=== PATIENT | female | born 1950 | race Caucasian/White ===

== ENCOUNTER 2019-01-27 06:21 | Day surgery (SDC) | payer BC, OTHER ==
[2019-01-16 10:16] VITALS: BMI 29.7
[2019-01-27] MEDS ORDERED: PHENAZOPYRIDINE HCL 100 MG TABLET (FP) PO ONE (07:00)
[2019-01-27] MEDS ORDERED: ROPIVACAINE HCL 0.5% 30ML VIAL ONE (07:13)
[2019-01-27] MEDS ORDERED: MIDAZOLAM HCL 2 MG/2 ML SINGLE DOSE VIAL ONE ×3 (07:18→07:32)
[2019-01-27] MEDS ORDERED: VASOPRESSIN 20 UNITS/ML VIAL IV ONE (07:20)
[2019-01-27] MEDS ORDERED: BUPIVACAINE HCL/PF 0.5% (5 MG/ML) 30 ML VIAL IJ ONE (07:20)
--- NOTE | 2019-01-27 07:24 | HP ---
History & Physical Update - History History: No Change - Physical Physical: No Change - Assessment Assessment: No Change - Plan Plan: No Change (No change in HP)
[2019-01-27] MEDS ORDERED: ROCURONIUM BROMIDE 50 MG/5 ML SYRINGE ONE ×2 (07:32)
[2019-01-27] MEDS ORDERED: PROPOFOL 20 ML ONE ×3 (07:32→11:45)
[2019-01-27] MEDS ORDERED: fentaNYL CITRATE 250 MCG/5 ML VIAL ONE ×3 (07:32→10:11)
[2019-01-27] MEDS ORDERED: ceFAZolin SODIUM 1 GM VIAL IVPB ONE (08:15)
[2019-01-27] MEDS ORDERED: EPHEDRINE SULFATE/0.9% NACL/PF 50 MG/10 ML SYRINGE NR ONE (08:33)
[2019-01-27] MEDS ORDERED: DOCUSATE SODIUM 100 MG CAPSULE (FP) PO PRN (10:39)
[2019-01-27] MEDS ORDERED: oxyCODONE HCL 5 MG TABLET PO PRN ×2 (10:39)
[2019-01-27] MEDS ORDERED: ONDANSETRON 4 MG/2 ML VIAL IVPUSH PRN (10:39)
[2019-01-27] MEDS ORDERED: ACETAMINOPHEN 325 MG TABLET (FP) PO PRN (10:39)
[2019-01-27] MEDS ORDERED: SIMETHICONE 80 MG TAB.CHEW (FP) PO PRN (10:39)
[2019-01-27] MEDS ORDERED: IBUPROFEN 800 MG/8 ML IJ IVPB PRN (10:39)
[2019-01-27] MEDS ORDERED: SODIUM CHLORIDE 1,000 ML IV SCH (10:45)
[2019-01-27] MEDS ORDERED: GLYCOPYRROLATE 0.2 MG/1 ML VIAL ONE (11:02)
[2019-01-27] MEDS ORDERED: NEOSTIGMINE METHYLSULFATE 0.5 MG/ML - 10 ML MDV ONE (11:02)
[2019-01-27] MEDS ORDERED: BUPIVACAINE HCL/PF 0.5% (5MG/ML) 10 ML VIAL NR ONE (11:11)
[2019-01-27] MEDS ORDERED: BISACODYL 5 MG TABLET.DR (FP) PO ONE (12:00)
[2019-01-27] MEDS ORDERED: INSULIN (NOVOLOG) ASPART 100 UNITS/ML 10ML VIAL ONE (14:02)
[2019-01-27] MEDS ORDERED: INSULIN (NOVOLOG) ASPART 100 UNITS/ML 10ML VIAL SQ ONE (14:07)
--- NOTE | 2019-01-27 15:08 | OP ---
Operative Note - Note: Operative Date: 01/27/19 Pre-Operative Diagnosis: Cystocele, uterine prolapse Operation: Robotic laproscopic total hysterectomy, bilateral salpingectomy, and bilateral oopherectomy. Post-Operative Diagnosis: Same as Pre-op Surgeon: Morena Woo Nutritionist: Jaren Delatorre Anesthesiologist/AGRICULTURE ENGINEER: Klarissa Tay Anesthesia: General Estimated Blood Loss (mls): 20 Operative Report Dictated: Yes
--- NOTE | 2019-01-27 15:09 | SURG ---
Surgery Condominium Property Manager Note Condominium Property Manager: Jaren Delatorre PA-C Date of Service: 01/27/19 Diagnosis: Cystocele, uterine prolapse Procedure: Robotic laproscopic total hysterectomy, bilateral salpingectomy, and bilateral oopherectomy. I was present for the entirety of the operative procedure. For further detail, please refer to operative report. Visit type - Case Type Case Type: Scheduled - Emergency Emergency Visit: No - New patient This patient is new to me today: Yes Date on this admission: 01/27/19 - Critical Care Critical Care patient: No
[2019-01-27] MEDS: INSULIN SLIDING SCALE (NOVOLOG) 1 VIAL SQ SCH ×2 (17:10→22:21)
[2019-01-27] MEDS: CEFAZOLIN 1 GM/D5W 1 GM/50 ML BAG IVPB SCH (17:12)
[2019-01-27 19:13] LABS: HEMATOCRIT 31.9 % (32.4-45.2); HEMOGLOBIN 10.5 GM/dL (10.7-15.3); MCH 28.6 pg (25.7-33.7); MCHC 32.8 g/dl (32.0-36.0); MEAN PLT VOLUME 9.6 fl (7.5-11.1); PLATELET COUNT 198 K/MM3 (134-434); RBC 3.66 M/mm3 (3.60-5.2); RDW 13.8 % (11.6-15.6); WHITE BLOOD COUNT 11.6 K/mm3 (4.0-10.0)
[2019-01-27 19:36] LABS: BLOOD UREA NITROGEN 19.7 mg/dL (7-18); CALCIUM 9.2 mg/dL (8.5-10.1)
[2019-01-28] MEDS: CEFAZOLIN 1 GM/D5W 1 GM/50 ML BAG IVPB SCH ×2 (01:13→07:59)
[2019-01-28] MEDS: INSULIN SLIDING SCALE (NOVOLOG) 1 VIAL SQ SCH ×2 (08:05→11:23)
--- NOTE | 2019-01-28 08:52 | PN ---
Progress Note (short form) - Note Progress Note: 68yo F s/p robotic hysterectomy and bladder sling POD 1, pt seen and examined at bedside. Pt states that she feels good, pain is well controlled. Dallas was just removed. Pt denies n/v, fever, chills. Pt tolerating PO and ambulating. Last Vital Signs Temp Pulse Resp BP Pulse Ox 98.1 F 93 H 20 147/65 97 01/28/19 06:56 01/28/19 06:56 01/28/19 06:56 01/28/19 06:56 01/28/19 06:57 CBC, BMP 01/27/19 18:35 01/27/19 18:35 PE: Gen: A&O X3 Resp: breathing comfortably Abd; soft, nondistended, nontender, incisions are clean, no erythema or discharge. Ext; no edema Problem List - Problems (1) S/P hysterectomy with oophorectomy Assessment/Plan: Plan -pt appears to be doing well, will plan to discharge later today if tolerating diet and urinating well. -pt should follow up with Dr. Woo next week for follow up and call Dr. Ng's office for follow up appt. -please contact surgery service if any issues. Pt discussed with Dr. Woo who agrees with plan Code(s): Z90.710 - ACQUIRED ABSENCE OF BOTH CERVIX AND UTERUS; Z90.721 - ACQUIRED ABSENCE OF OVARIES, UNILATERAL
--- NOTE | 2019-01-28 09:08 | PN ---
Post Progress Note - Subjective Subjective: Patient is status post Post Day: 1 Vital Signs: Vital Signs Temperature 98.1 F 01/28/19 06:56 Pulse Rate 93 H 01/28/19 06:56 Respiratory Rate 20 01/28/19 06:56 Blood Pressure 147/65 01/28/19 06:56 O2 Sat by Pulse Oximetry (%) 97 01/28/19 06:57 - Labs Labs: CBC WBC 11.6 K/mm3 (4.0-10.0) H 01/27/19 18:35 RBC 3.66 M/mm3 (3.60-5.2) 01/27/19 18:35 Hgb 10.5 GM/dL (10.7-15.3) L 01/27/19 18:35 Hct 31.9 % (32.4-45.2) L 01/27/19 18:35 MCV 87.0 fl (80-96) 01/27/19 18:35 MCH 28.6 pg (25.7-33.7) 01/27/19 18:35 MCHC 32.8 g/dl (32.0-36.0) 01/27/19 18:35 RDW 13.8 % (11.6-15.6) 01/27/19 18:35 Plt Count 198 K/MM3 (134-434) 01/27/19 18:35 MPV 9.6 fl (7.5-11.1) 01/27/19 18:35
[2019-01-28 09:12] LABS: HEMATOCRIT 31.7 % (32.4-45.2); HEMOGLOBIN 10.7 GM/dL (10.7-15.3); MCH 29.2 pg (25.7-33.7); MCHC 33.7 g/dl (32.0-36.0); MEAN CELL VOLUME 86.6 fl (80-96); MEAN PLT VOLUME 9.2 fl (7.5-11.1); PLATELET COUNT 220 K/MM3 (134-434); RBC 3.66 M/mm3 (3.60-5.2); RDW 13.8 % (11.6-15.6); WHITE BLOOD COUNT 14.3 K/mm3 (4.0-10.0)
[2019-01-28] MEDS ORDERED: VITAMIN B COMPLEX W/C COMBO TABLET (FP) PO SCH (10:00)
[2019-01-28] MEDS ORDERED: ENOXAPARIN NA (PORCINE) 40 MG/0.4 ML DISP.SYRIN SQ SCH (10:00)
[2019-01-28] MEDS ORDERED: amLODIPine BESYLATE 10 MG TABLET (FP) PO SCH (10:00)
[2019-01-28] MEDS ORDERED: LISINOPRIL 10 MG TABLET (FP) PO SCH (10:00)
[2019-01-28 10:02] LABS: CALCIUM 9.4 mg/dL (8.5-10.1); CREATININE 0.8 mg/dL (0.55-1.3); POTASSIUM 4.3 mmol/L (3.5-5.1)
--- NOTE | 2019-01-28 14:22 | PATH ---
Surgical Pathology Report Patient Name: CINDY BYRNES [facility]. Rec. #: [id number] /Age/Gender: 1950 (Age: 68) / F Account: [id number] Location: [facility] OBS/LUBRICATOR GRANULATOR Taken: 01/27/2019 Received: 01/27/2019 Reported: 01/28/2019 Physicians: Raleigh Kim M.D. Specimen(s) Received A: ANTERIOR VAGINAL MUCOSA B: UTERUS AND CERVIX C: LEFT FALLOPIAN TUBE D: RIGHT FALLOPIAN TUBE E: LEFT OVARY F: RIGHT OVARY Clinical History Uterine prolapse, cystocele Final Diagnosis A. ANTERIOR VAGINAL MUCOSA, EXCISION: VAGINAL SQUAMOUS MUCOSA WITHOUT SIGNIFICANT PATHOLOGIC FINDINGS. B. UTERUS, CERVIX, ROBOTIC LAPAROSCOPIC TOTAL HYSTERECTOMY: 48 G UTERUS. ENDOMETRIAL POLYP.ATROPHIC ENDOMETRIUM. UNREMARKABLE MYOMETRIUM. CERVIX WITH FOCAL ACUTE AND CHRONIC INFLAMMATION, ULCERATION, REACTIVE CHANGES, AND HYPERKERATOSIS. C. FALLOPIAN TUBE, LEFT, SALPINGECTOMY: UNREMARKABLE FALLOPIAN TUBE (INCLUDING FIMBRIATED END AND FULL LUMINAL PORTION). D. FALLOPIAN TUBE, RIGHT, SALPINGECTOMY: FALLOPIAN TUBE WITH PARATUBAL CYST AND FOCAL ENDOSALPINGOSIS (INCLUDING FIMBRIATED END AND FULL LUMINAL PORTION). E. OVARY, LEFT, OOPHORECTOMY: OVARY WITHOUT SIGNIFICANT PATHOLOGIC FINDINGS. F. OVARY, RIGHT, OOPHORECTOMY: OVARY WITHOUT SIGNIFICANT PATHOLOGIC FINDINGS. Electronically Signed Sandrine Lancaster M.D. Gross Description A. Received in formalin labeled "anterior vaginal mucosa," is a 5.0 x 1.9 x 0.4 cm aggregate of 2 mercado, irregular, unoriented portions of mucosal tissue. Program Trainer sections are submitted in one cassette. B. Received in formalin labeled "cervix and uterus," is a 48 g uterus with attached cervix and no attached adnexa. The specimen measures 7.5 cm from superior to inferior, 4.5 cm from left to right and 2.5 cm from anterior to posterior. The serosa is pink-mercado and smooth. The cervix measures 3 cm in length and 1.8 cm in diameter. The ectocervix is mercado, smooth and glistening. The endocervix is unremarkable. The endometrial cavity measures 3.3 cm in length and 2.4 cm from cornu to cornu. The endometrium displays a 0.3 cm in greatest dimension possible polypoid lesion at the posterior aspect. The remaining endometrium is mercado-red and averages 0.1 cm in thickness. The myometrium is mercado-pink and averages 1.2 cm in thickness. No intramural nodules are identified. Program Trainer sections are submitted in 6 cassettes as follows: 1-anterior cervix; 2-posterior cervix; 4-8-cyytnsrm endomyometrium; 5-posterior endomyometrium with polyp; 6-additional posterior endomyometrium. C. Received in formalin labeled "left fallopian tube," is a 5 cm in length fimbriated fallopian tube. The outer surface is mercado-pink and smooth. Sectioning reveals an unremarkable lumen. Program Trainer sections are submitted in 2 cassettes as follows: 1-fimbria; 2-cross sections of fallopian tube. D. Received in formalin labeled "right fallopian tube," is a 2.5 cm in length fimbriated fallopian tube. The outer surface is mercado-pink and smooth. Sectioning reveals an unremarkable lumen. Program Trainer sections are submitted in 2 cassettes as follows: 1-fimbria; 2-cross sections of fallopian tube. E. Received in formalin labeled "left ovary," is a 2.7 x 1.6 x 1.0 cm ovary. The outer surface is mercado-yellow and smooth. Sectioning reveals unremarkable ovarian parenchyma. Program Trainer sections are submitted in 2 cassettes. F. Received in formalin labeled "right ovary," is a 2.7 x 1.8 x 1.3 cm ovary. The outer surface is mercado-yellow and smooth. Sectioning reveals unremarkable ovarian parenchyma. Program Trainer sections are submitted in 2 cassettes. 01/27/2019 saudi01/27/2019
[2019-01-28 14:51] VITALS: PULSE 107
--- NOTE | 2019-01-28 14:57 | PN ---
Progress Note (short form) - Note Progress Note: POD #1 s/p robot assisted laparoscopic BLADIMIR with cystocele repair under GEtA and bilateral TAP blocks. Patient doing well, denies nausea/vomiting, uncontrolled pain. Patient congested and coughing today, CXR clear. Encouraged incentive spirometry use and ambulation.
[2019-01-28 15:18] VITALS: BP 152/79; TEMP 98.8
--- NOTE | 2019-01-30 09:11 | OP ---
DATE OF OPERATION: 01/27/2019 PREOPERATIVE DIAGNOSES: Uterine prolapse, cystocele. OPERATION: Robotic laparoscopic total hysterectomy and bilateral salpingectomy and also bilateral oophorectomy. POSTOPERATIVE DIAGNOSES: Uterine prolapse, cystocele. SURGEON: Morena Woo MD FARM SERVICE ADVISER: Jaren Delatorre PA-C ANESTHESIOLOGIST: JONAS Sinha ANESTHESIA: General. ESTIMATED BLOOD LOSS: 20 mL. PROCEDURE: Patient was taken to the operating room, placed in dorsal lithotomy position, prepped and draped in the usual sterile fashion. A second timeout was done after Dr. Kim had performed the cystocele repair as well as a sling. Speculum was placed in the vagina. Anterior lip of the cervix grasped with a single-tooth tenaculum and cervix was then dilated to accommodate the uterine manipulator. Dallas catheter was then inserted into the bladder. Attention was then drawn to the umbilicus where an 8-mm umbilical incision was made. Veress needle was inserted into the cavity. Approximately 3-4 L of CO2 was insufflated in the cavity. Veress needle was removed, and an 8-mm trocar was then introduced. Laparoscope and camera attached. Visualization revealed a prolapsed uterus, normal tubes and ovaries. Two trocars were placed on the left. Scalpel was then used to make 8-mm incisions about 10 cm apart in each incision, one in the upper abdomen and one 10 cm apart from the umbilicus. Trocars were inserted under direct visualization. Two robotic trocars were also placed on the right side 10 cm apart. Scalpel was then used to make an 8-mm incision, and trocars were inserted under direct visualization. Placement was confirmed. The da Anupama robot was then side docked to the patient's bedside. Trocars were then attached. Instruments were then placed. LigaSure was placed in arm 1, camera in arm 2, EndoShears in arm 3, and tenaculum in arm 4. After placement had been confirmed and all trocars had been burped up and placement of instruments was done, attention was then drawn to the console where control of the console was then done. The tenaculum was then used to grasp the uterus over to the right side, and a LigaSure was then used to coagulate and cut the utero-ovarian ligament. Uterine artery was then identified, clamped, and cut. Vesicouterine reflection was then entered, and bladder was bluntly dissected out the operative field. Dissection was done to ensure that the bladder was totally out of the operative field. Same procedure was repeated on the right side. Utero-ovarian ligaments identified. Uterine arteries were identified and clamped and cut, and cardinal ligaments identified, clamped, and cut, all down to the level of the cervix. Cervix was then entered using EndoShears, and the cervix was then cut away from the vagina. Uterus and cervix were then removed from the vagina. The tubes and ovaries were bilaterally grasped. Infundibulopelvic ligaments identified and clamped and cut using LigaSure, and bilateral tubes and ovaries were removed. The 2-0 V-Loc suture was introduced into the abdomen, and the da Anupama robot was then used to close the cuff in a continuous fashion. Hemostasis was achieved. Ureters identified and found to have bilateral peristalsis. All instruments were then removed. CO2 was removed from the abdomen, and all incisions were closed using 3-0 Vicryl in subcuticular fashion. Wound was washed and dressed. The patient had tolerated the procedure well, was taken to recovery room in stable condition. Wesley [id number]
== END 2019-01-28 15:45 | disposition home or self-care (01) ==
LOC: JASUSAT 06:21 → J3W 14:53 → JASUSAT 01-28 15:45
PROVIDERS: ATTEND Obstetrics & Gynecology
PROC: 8E0W4CZ Robotic Assisted Procedure of Trunk Region, Percutaneous Endoscopic Approach (ICD-10-PCS; 2019-01-27)
PROC: 0UT94ZZ Resection of Uterus, Percutaneous Endoscopic Approach (ICD-10-PCS; principal; 2019-01-27 08:00)
PROC: 0UT24ZZ Resection of Bilateral Ovaries, Percutaneous Endoscopic Approach (ICD-10-PCS; 2019-01-27 08:00)
PROC: 0UT74ZZ Resection of Bilateral Fallopian Tubes, Percutaneous Endoscopic Approach (ICD-10-PCS; 2019-01-27 08:00)
DX: N81.4 Uterovaginal prolapse, unspecified (principal); N81.10 Cystocele, unspecified
CPT/HCPCS: 58571; S2900; 36415; 71046-TC-FY; 80048; 82962; 85027; 86850; 86900; 86901; 88302-TC; 88305-TC; 94010; 94760; J7030

== ENCOUNTER 2019-01-30 10:04 | Emergency (ER) | payer BC, OTHER ==
[2019-01-30] MEDS ORDERED: ASPIRIN 325 MG TABLET PO ONE (10:19)
[2019-01-30 10:21] VITALS: BP 180/82; BMI 30.7
[2019-01-30] MEDS ORDERED: CLOPIDOGREL BISULFATE 300 MG TABLET PO ONE (10:21)
[2019-01-30] MEDS ORDERED: HEPARIN NA (PORCINE) 5,000 UNITS/ML 1ML VIAL IVPUSH PRN (10:22)
[2019-01-30] MEDS ORDERED: ASPIRIN 325 MG ENTERIC COATED TABLET (FP) ONE (10:25)
[2019-01-30] MEDS ORDERED: HEPARIN NA (PORCINE) 5,000 UNITS/ML 1ML VIAL ONE (10:25)
[2019-01-30] MEDS ORDERED: CLOPIDOGREL BISULFATE 300 MG TABLET ONE (10:25)
--- NOTE | 2019-01-30 10:33 | PDOC ---
History of Present Illness - General Chief Complaint: Chest Pain Stated Complaint: CHEST TIGHTNESS Time Seen by Provider: 01/30/19 10:20 History Source: Patient Exam Limitations: No Limitations - History of Present Illness Initial Comments: 01/30/19 10:55 68 yo female, former smoker, pmh HTN, HLD, DM, new heart murmur and recent hysterectomy (01/27/2019) presents to the ED with chest tightness. Pt states the tightness began last night while resting, pt had associated SOB but denies radiation of pain. Pt has no hx of [place], blood clots, cardiac arrhythmia. Denies back pain, calf tenderness, blood clotting disorder, F/C/N/V, lightheadedness, abdominal pain Past History - Past Medical History Allergies/Adverse Reactions: Allergies Allergy/AdvReac Type Severity Reaction Status Date / Time Sulfa (Sulfonamide Allergy Severe Verified 01/27/19 07:16 Antibiotics) Penicillins Allergy Intermediate Verified 01/27/19 07:16 Home Medications: Ambulatory Orders Amlodipine Besylate 10 mg PO DAILY 01/16/19 Aspirin [Pike Aspirin EC] 81 mg PO DAILY 01/16/19 Cinnamon Bark [Cinnamon] 500 mg PO DAILY 01/16/19 Insulin Degludec/Liraglutide [Xultophy 100 Unit-3.6MG/ml Pen] 3 ml SQ ACBK 01/16 Lisinopril 10 mg PO DAILY 01/16/19 Metformin HCl [Glucophage] 500 mg PO DAILY 01/16/19 Vitamin B Comp W-C [Total B with C -] 1 tab PO DAILY 01/16/19 Docusate Sodium [Colace] 100 mg PO BID #30 capsule 01/28/19 Nitrofurantoin Monohyd/M-Cryst [Macrobid -] 100 mg PO BID #14 capsule 01/28/19 Oxycodone HCl/Acetaminophen [Percocet 5-325 mg Tablet] 1 tab PO Q6H #20 tablet MDD 4 01/28/19 Anemia: No Asthma: No Cancer: No Cardiac Disorders: No CVA: No COPD: No CHF: No Dementia: No Diabetes: Yes GI Disorders: No Disorders: No HTN: Yes Hypercholesterolemia: Yes Liver Disease: No Seizures: No Thyroid Disease: No - Surgical History Abdominal Surgery: No Appendectomy: No Cardiac Surgery: No Cholecystectomy: No Lung Surgery: No Neurologic Surgery: No Orthopedic Surgery: No - Psycho Social/Smoking Cessation Hx Smoking History: Former smoker Have you smoked in the past 12 months: No Information on smoking cessation initiated: No Hx Alcohol Use: No Drug/Substance Use Hx: No Substance Use Type: None Hx Substance Use Treatment: No Review of Systems - Review of Systems Constitutional: No: Chills, Fever HEENTM: No: Blurred Vision, Double Vision Respiratory: Yes: Shortness of Breath Cardiac (ROS): Yes: Chest Pain. No: Lightheadedness, Palpitations ABD/GI: No: Constipated, Diarrhea, Nausea, Vomiting : No: Burning, Dysuria, Frequency, Flank Pain Neurological: No: Headache, Numbness, Paresthesia *Physical Exam - Vital Signs Last Vital Signs Temp Pulse Resp BP Pulse Ox 98.5 F 117 H 22 H 180/82 H 87 L 01/30/19 10:19 01/30/19 10:19 01/30/19 10:19 01/30/19 10:01/30/19 10:19 - Physical Exam General Appearance: Yes: Nourished, Appropriately Dressed. No: Apparent Distress HEENT: positive: EOMI Neck: positive: Supple. negative: Carotid bruit Respiratory/Chest: positive: Crackles (bibasilar). negative: Lungs Clear, Respiratory Distress, Accessory Muscle Use, Rales, Rhonchi, Stridor, Wheezing Cardiovascular: positive: Regular Rhythm, S1, S2, Tachycardia. negative: Edema , JVD, Murmur Vascular Pulses: Dorsalis-Pedis (R): 4+, Doralis-Pedis (L): 4+ Gastrointestinal/Abdominal: positive: Flat, Soft. negative: Pulsatile Mass, Protuberent, Distended, Guarding, Rebound, Tenderness Musculoskeletal: negative: CVA Tenderness Extremity: positive: Normal Capillary Refill, Normal Inspection Integumentary: positive: Normal Color, Dry, Warm Neurologic: positive: Fully Oriented, Alert, Normal Mood/Affect, Normal Response Heart Score/ECG Review - History History: Highly suspicious - Electrocardiogram EKG: Significant ST-depression - Age Age: >/= 65 - Risk Factors Risk Factors Heart Score: Yes Hx Hypercholesterolemia, Yes Hx Hypertension, Yes Hx Diabetes, Yes Smoking History Based on the list above the patient has:: >/=3 risk factors or Hx atherosclerotic disease - Troponin Troponin: >/=3x normal limit - Score Heart Score - Total: 10 ED Treatment Course - LABORATORY CBC & Chemistry Diagram: 01/30/19 10:20 01/30/19 10:20 - RADIOLOGY Radiology Studies Ordered: Category Date Time Status CHEST PA & LAT [RAD] Stat Radiology 01/30/19 10:20 Ordered Medical Decision Making - Medical Decision Making 01/30/19 12:32 68 yo female, former smoker, pmh HTN, HLD, DM, new heart murmur and recent hysterectomy (01/27/2019) presents to the ED with chest tightness. Pt states the tightness began last night while resting, pt had associated SOB but denies radiation of pain. Pt has no hx of [place], blood clots, cardiac arrhythmia. Denies back pain, calf tenderness, blood clotting disorder, F/C/N/V, lightheadedness, abdominal pain vitals show elevated BP, hypoxic to the 80s, elevated RR and HR EKG shows sig diffuse ST depressions and AVR DDX INLT: KY, PE EKG received from triage, recognized concerning morphology for L main vessel occlusion/triple vessel disease, pt brought into main ED immediately, placed on monitor, given O2 (saturation corrected with 2L O2) IV line and labs drawn, Van transfer Code red called CXR done, shows plueral effusion, new from last CXR 3 days prior Heparin 4000 units, 325 ASA and plavix 600mg PO given Dr. Sandra accepts pt to labor arbitrator hearing office (ANA spoke with Dr. Orellana) Labs show trop 2.6 Pt signs transfer papers and ambulance arrives for transfer within 40 min of EKG assessment Discharge - Discharge Information Problems reviewed: Yes Clinical Impression/Diagnosis: ACS (acute coronary syndrome), STEMI (ST elevation myocardial infarction), Chest tightness Condition: Stable Disposition: TRANSFER ACUTE CARE/OTHER HOSP - Follow up/Referral - Patient Discharge Instructions - Post Discharge Activity
[2019-01-30 10:42] LABS: BASO % 0.5 % (0-2.0); EOS % 0.3 % (0-4.5); HEMATOCRIT 31.8 % (32.4-45.2); HEMOGLOBIN 10.5 GM/dL (10.7-15.3); LYMPH % 10.2 % (8-40); MCH 28.7 pg (25.7-33.7); MCHC 33.1 g/dl (32.0-36.0); MEAN CELL VOLUME 86.6 fl (80-96); MEAN PLT VOLUME 10.1 fl (7.5-11.1); MONO % 4.9 % (3.8-10.2); NEUT % 84.1 % (42.8-82.8); PLATELET COUNT 218 K/MM3 (134-434); RBC 3.68 M/mm3 (3.60-5.2); RDW 13.7 % (11.6-15.6); WHITE BLOOD COUNT 13.5 K/mm3 (4.0-10.0)
[2019-01-30 10:49] VITALS: PULSE 110; TEMP 98.6
--- NOTE | 2019-01-30 10:52 | PDOC ---
Documentation entered by Luís Whitehead SCRIBE, acting as scribe for Katelyn Hall MD. Katelyn Hall MD: This documentation has been prepared by the [place] kelly Daniel, SCRIBE, under my direction and personally reviewed by me in its entirety. I confirm that the documentation accurately reflects all work, treatment, procedures, and medical decision making performed by me. Attending Attestation - Resident Resident Name: En Nguyen - ED Attending Attestation I have performed the following: I have examined & evaluated the patient, The case was reviewed & discussed with the resident, I agree w/resident's findings & plan, Exceptions are as noted - HPI HPI: 01/30/19 10:25 The patient is a 68 year old female with a past medical history of diabetes, HTN , and heart murmur (patient unsure of what kind) here today for evaluation of chest tightness. The patient reports that she had a hysterectomy performed here on sunday (01/27/19) and noted feeling some chest congestion afterwards. She was started on antibiotics two days ago. Last night, she developed chest tightness around 7-8 PM while at rest and began to feel winded. She states that her tightness does not radiate anywhere. Patient denies headache, focal weakness/numbness, lightheadedness, diaphoresis. Denies fever, chills. Denies shortness of breath. Denies nausea, vomiting, diarrhea, abdominal pain. Denies LE edema or calf pain. Allergies: sulfa, penicillins PCP: Maggie Guzman - Physicial Exam PE: 01/30/19 10:25 GENERAL: Awake, alert, and fully oriented, in no acute distress. EYES: PERRLA, EOMI, sclera anicteric, conjunctiva clear ENT: Nres patent, oropharynx clear without exudates. Moist mucosa NECK: Normal ROM, supple, no lymphadenopathy, JVD, or masses LUNGS: Breath sounds equal, clear to auscultation bilaterally. No wheezes, and no crackles HEART: Tachycardic but regular, rate 110, normal S1 and S2, no murmurs, rubs or gallops ABDOMEN: Soft, nontender, normoactive bowel sounds. No guarding, no rebound. No masses EXTREMITIES: Normal range of motion, no edema. No clubbing or cyanosis. No cords , erythema, or tenderness NEUROLOGICAL: Normal speech, cranial nerves intact, 5/5 strength in all 4 extremities, normal sensation to light touch in all 4 extremities, normal cerebellar exam, normal gait SKIN: Warm, Dry, normal turgor, no rashes or lesions noted. - Critical Care Time Total Critical Care Time: 30 Critical Care Statement: The care of this patient involved high complexity decision making to prevent further life threatening deterioration of the patient 's condition and/or to evaluate & treat vital organ system(s) failure or risk of failure. - Medical Decision Making 01/30/19 11:10 68-year-old female with a history of hypertension and hyperlipidemia insulin- dependent diabetes presents to the emergency department with chest tightness since last night. EKG consistent with STEMI. Code STEMI activated with [facility], patient given aspirin 325, Plavix 600 mg and a bolus of heparin 4000 units. Patient accepted by Dr. Palumbo to the mechanical shop laborer at [facility], transport activated by [facility]. Patient and her sons have been consented for transfer. Plan has been explained to patient, and all questions have been answered. Discharge - Discharge Information Problems reviewed: Yes Clinical Impression/Diagnosis: ACS (acute coronary syndrome), STEMI (ST elevation myocardial infarction), Chest tightness Condition: Stable Disposition: TRANSFER ACUTE CARE/OTHER HOSP - Follow up/Referral - Patient Discharge Instructions - Post Discharge Activity - Transfer to Acute Care Facility Receiving Facility Name: [facility] Accepting Physician:: Dr. Palumbo Heart Score/ECG Review - History History: Highly suspicious - Electrocardiogram EKG: Significant ST-depression - Age Age: >/= 65 - Risk Factors Based on the list above the patient has:: >/=3 risk factors or Hx atherosclerotic disease #1 01/30/19 11:09 Twelve-lead EKG was performed and reviewed by me. Sinus tachycardia, rate 112. Normal axis and intervals. Diffuse ST elevations in 1, 2, 3, aVF, V4 to V6 with [address] elevation in aVR. Consistent with STEMI. No previous EKGs to compare.
[2019-01-30 11:05] LABS: INR 1.06 (0.83-1.09); PROTHROMBIN TIME (PATIENT) 12.5 SEC (9.7-13.0)
[2019-01-30 11:07] LABS: ALBUMIN 3.3 g/dl (3.4-5.0); BILIRUBIN,TOTAL 1.6 mg/dL (0.2-1); BLOOD UREA NITROGEN 21.5 mg/dL (7-18); CALCIUM 9.5 mg/dL (8.5-10.1); MAGNESIUM 1.8 mg/dL (1.8-2.4); POTASSIUM 3.9 mmol/L (3.5-5.1); TOT PROT 6.6 g/dl (6.4-8.2)
[2019-01-30 11:08] LABS: ACTIVATED PTT 29.9 SECONDS (25.2-36.5)
--- NOTE | 2019-01-30 15:24 | EKG ---
Test Reason : Blood Pressure : / mmHG Vent. Rate : 112 BPM Atrial Rate : 112 BPM P-R Int : 128 ms QRS Dur : 092 ms QT Int : 314 ms P-R-T Axes : 055 072 227 degrees QTc Int : 428 ms SINUS TACHYCARDIA SEPTAL INFARCT , AGE UNDETERMINED MARKED ST ABNORMALITY, POSSIBLE INFEROLATERAL SUBENDOCARDIAL INJURY ABNORMAL ECG NO PREVIOUS ECGS AVAILABLE Confirmed by EVE DAMICO MD ([id number]) on 01/30/2019 3:24:19 PM Referred By: Confirmed By:EVE DAMICO MD
== END 2019-01-30 11:07 | disposition short-term general hospital (02) ==
LOC: JER 10:04
PROC: 3E033GC Introduction of Other Therapeutic Substance into Peripheral Vein, Percutaneous Approach (ICD-10-PCS; principal; 2019-01-30)
DX: Z88.0 Allergy status to penicillin (principal); Z88.2 Allergy status to sulfonamides; E78.5 Hyperlipidemia, unspecified; E11.9 Type 2 diabetes mellitus without complications; R01.1 Cardiac murmur, unspecified
CPT/HCPCS: 36415; 71045-TC-FY; 80053; 82550; 82553; 83735; 84484; 85025; 85610; 85730; 93005; 93010; 99284-25; J1644

== ENCOUNTER 2021-09-06 03:57 | Day surgery (SDC) | payer OTHER, BC ==
[2021-09-01 15:29] VITALS: BMI 30.9
[2021-09-06] MEDS ORDERED: LIDOCAINE HCL 2% 100 MG/5 ML DISP.SYRIN ONE (12:44)
[2021-09-06] MEDS ORDERED: PROPOFOL 20 ML ONE (12:44)
[2021-09-06] MEDS ORDERED: MIDAZOLAM HCL 2 MG/2 ML SINGLE DOSE VIAL ONE (12:45)
[2021-09-06] MEDS ORDERED: VASOPRESSIN 20 UNITS/ML VIAL IV ONE (12:56)
[2021-09-06] MEDS ORDERED: ACETAMINOPHEN 1000 MG/100 ML BAG IVPB ONE ×2 (13:20→15:14)
[2021-09-06] MEDS ORDERED: DEXTROSE 5%-0.45% SALINE 1,000 ML IV SCH (13:30)
[2021-09-06] MEDS ORDERED: ceFAZolin SODIUM 1 GM VIAL IVPB ONE (13:35)
[2021-09-06] MEDS ORDERED: DEXAMETHASONE SOD PHOSPHATE 4 MG/1 ML VIAL ONE (13:41)
[2021-09-06] MEDS ORDERED: ONDANSETRON 4 MG/2 ML VIAL ONE (13:41)
[2021-09-06] MEDS ORDERED: ceFAZolin SODIUM 1 GM VIAL ONE (13:41)
[2021-09-06] MEDS ORDERED: KETOROLAC TROMETHAMINE 30 MG/1 ML VIAL ONE (13:41)
[2021-09-06] MEDS ORDERED: IBUPROFEN 800 MG/8 ML IJ IVPB SCH (14:00)
[2021-09-06] MEDS ORDERED: oxyCODONE HCL 5 MG TABLET PO PRN ×2 (14:37)
[2021-09-06] MEDS ORDERED: PROMETHAZINE HCL 25 MG/1 ML VIAL IVPUSH PRN (14:37)
[2021-09-06] MEDS ORDERED: ONDANSETRON 4 MG/2 ML VIAL IVPUSH PRN (14:37)
[2021-09-06] MEDS ORDERED: hydrALAZINE HCL 20 MG/ML VIAL ONE (14:42)
[2021-09-06] MEDS ORDERED: hydrALAZINE HCL 20 MG/ML VIAL IVPUSH ONE ×2 (14:43→14:46)
[2021-09-06] MEDS ORDERED: LACTATED RINGERS SOLUTION 1,000 ML IV SCH (14:45)
[2021-09-06] MEDS ORDERED: FENTANYL CITRATE/PF 50 MCG/ML VIAL ONE (14:48)
[2021-09-06] MEDS ORDERED: ACETAMINOPHEN INJECTION 100 ML IVPB ONE (15:12)
[2021-09-06 17:43] VITALS: BP 124/60; PULSE 75; TEMP 97.3
== END 2021-09-06 17:30 | disposition home or self-care (01) ==
LOC: JASU-SURG 03:57
PROVIDERS: ATTEND Urology
PROC: 0JQC0ZZ Repair Pelvic Region Subcutaneous Tissue and Fascia, Open Approach (ICD-10-PCS; principal; 2021-09-06 13:00)
DX: N81.11 Cystocele, midline (principal)
CPT/HCPCS: 82962; 88302-TC; 94760